=== PATIENT | male | born 1990 | race Caucasian/White ===

== ENCOUNTER 2018-07-20 16:23 | Emergency (ER) | payer MEDICARE, OTHER, MEDICAID ==
[2018-07-20] MEDS: LORAZEPAM 1 MG TAB PO (17:29)
== END 2018-07-20 19:42 | disposition left against medical advice (07) ==
LOC: FTE 16:23
DX: I10 Essential (primary) hypertension (principal); F41.9 Anxiety disorder, unspecified; J45.909 Unspecified asthma, uncomplicated; F17.210 Nicotine dependence, cigarettes, uncomplicated
CPT/HCPCS: 71045; 93005; 99284-25